=== PATIENT | female | born 1995 | race Caucasian/White ===

== ENCOUNTER 2016-07-07 11:05 | Emergency (ER) | payer BC ==
[~2016-07-07] VITALS: Ht 162.6 cm; Wt 47.5 kg
[~2016-07-07 11:05] MED LIST: BEN25 PO; PRED50TA PO
[2016-07-07 11:06] VITALS: Ht 162.6 cm; Wt 47.5 kg
[2016-07-07] MEDS ORDERED: BACITRACIN 0.9 GM OINT TOP ONE (12:00)
[2016-07-07] MEDS ORDERED: LIDOCAINE 1% (MDV) 20 ML INJ SC ONE (12:00)
[2016-07-07] MEDS ORDERED: DIPHTH/TET/ACEL PERTUSS (ADULT) 0.5 ML VIAL IM* ONE (12:00)
[2016-07-07] MEDS ORDERED: BACI28.34 TOP (12:29)
--- NOTE | 2016-07-07 13:02 | ERD ---
ER Documentation Chief Complaint Date/Time DATE: 07/07/16 TIME: 12:58 Chief Complaint lt ear pain HPI 20-year-old female comes emergency department with a retained tragus piercing in her left ear and she reports that occurred yesterday. She had a piercing done 2 weeks ago, had actually fallen while she was in her sleep. ROS All systems reviewed and are negative except as per history of present illness. Medications Home Meds Active Scripts Bacitracin* (Bacitracin Zinc Oint*) 28.35 Gm Oint, 1 APPLIC TOP BID, #1 TUB APPLI TO Prov:JOAO BROWN PA-C 07/07/16 Prednisone* (Prednisone*) 50 Mg Tablet, 50 MG PO DAILY, #3 TAB Prov:JORDAN CHAN PA-C 08/27/15 Diphenhydramine Hcl* (Benadryl*) 25 Mg Cap, 25 MG PO Q6, #30 CAP Prov:JORDAN CHAN PA-C 08/27/15 Allergies Allergies: Coded Allergies: No Known Allergy (Unverified , 04/10/11) PMhx/Soc Medical and Surgical Hx: pt denies Medical Hx, pt denies Surgical Hx History of Surgery: No Anesthesia Reaction: No Hx Neurological Disorder: No Hx Respiratory Disorders: No Hx Cardiac Disorders: No Hx Psychiatric Problems: No Hx Miscellaneous Medical Probl: No Hx Alcohol Use: No Hx Substance Use: No Hx Tobacco Use: No Smoking Status: Never smoker Physical Exam Vitals Vital Signs Date Time Temp Pulse Resp B/P Pulse Ox O2 Delivery O2 Flow Rate FiO2 07/07/16 11:06 98.2 60 18 113/79 99 Physical Exam General: Well-developed, well-nourished. The patient appears in no acute distress. HEENT: Head is normocephalic, atraumatic. No scleral icterus. Left tragus has a piercing, no deformity is appreciated with palpation, opening is less than 1 mm. Backing is visible. Neck: Supple. Nontender. Lungs: Clear to auscultation. Normal air movement. Heart: Regular rate and rhythm. S1 and S2 are normal. No murmurs, gallops, or rubs. Abdomen: Nondistended. Extremities: No clubbing or cyanosis. Moving extremities x 4. No weakness. Neurologic: Alert and oriented 3. No focal deficits. Normal speech and gait. Skin: Normal turgor. No rash or lesions. Results 24 hrs Current Medications Medications (Trade) Dose Ordered Sig/Ana Route PRN Reason Start Time Stop Time Status Last Admin Dose Admin Lidocaine (Xylocaine 1% (Mdv) 20 ml) 20 ml ONCE ONCE SC 07/07/16 12:00 07/07/16 12:01 DC Diphtheria/ Tetanus/Acell Pertussis (Adacel) 0.5 ml ONCE ONCE IM* 07/07/16 12:00 07/07/16 12:01 DC 07/07/16 11:49 Bacitracin (Bacitracin Oint (Ud)) 1 applic ONCE ONCE TOP 07/07/16 12:00 07/07/16 12:01 DC Procedures/MDM ED course: Patient's tetanus updated. Foreign body removal, patient was verbally consented. The posterior aspect of the tragus was prepped with Betadine, lidocaine 1% without epinephrine approximately 1.5 cc was infiltrated into the wound. There is a local anesthetic effect achieved. #11 blade was used in transverse fashion above the piercing site posteriorly, approximately 2 mm cut was made. Hemostat was used to clamp the the backing of the earring, gentle traction was applied and the piercing was able to be removed fully. Hemostasis achieved, bacitracin was applied to the wound and clean dressing followed. Earring is a very small approximately 2mm stud. MDM: 20-year-old female comes in with a piercing on the tragus that had fallen and during her sleep, a very small incision was made posteriorly and with gentle traction the foreign body was able to removed fully. Patient will be given bacitracin for home, she was advised to recheck in 2 days. Departure Diagnosis: Primary Impression: History of retained foreign body fully removed Condition: Good Patient Instructions: Foreign Body, Soft Tissue (Removed) JOAO BROWN PA-C July 07, 2016 13:02
== END 2016-07-07 12:34 | disposition home or self-care (01) ==
LOC: FTE 11:05
DX: S00.452A Superficial foreign body of left ear, initial encounter (principal); W49.04XA Ring or other jewelry causing external constriction, initial encounter; Y92.9 Unspecified place or not applicable; Z23 Encounter for immunization
CPT/HCPCS: 10120; 90471; 90715; Z7502; Z7610